=== PATIENT | male | born 1960 ===

== ENCOUNTER 2019-07-05 07:42 | Day surgery (SDC) | payer BC ==
[~2019-07-05] VITALS: Ht 190.5 cm; Wt 99.8 kg
[~2019-07-05 07:42] MED LIST: KETO10 PO; SERT100 PO; THERA1 EACH PO; Zofran Odt4 MG PO
[2019-07-05 08:36] LABS: BASOPHILS ABSOLUTE AUTO 0.03 K/mm3 (0.00-0.23); BASOPHILS PERCENT AUTO 1 % (0-2); EOSINOPHILS ABSOLUTE AUTO 0.14 K/mm3 (0.00-0.68); EOSINOPHILS PERCENT AUTO 3 % (0-6); Hematocrit 47.3 % (37.0-53.0); Hemoglobin 15.7 g/dL (13.5-17.5); IMMATURE GRAN ABSOLUTE AUTO 0.01 K/mm3 (0.00-0.10); IMMATURE GRAN PERCENT AUTO 0 % (0-1); LYMPHOCYTES ABSOLUTE AUTO 1.23 K/mm3 (0.84-5.20); LYMPHOCYTES PERCENT AUTO 24 % (21-46); MONOCYTES ABSOLUTE AUTO 0.48 K/mm3 (0.16-1.47); MONOCYTES PERCENT AUTO 9 % (4-13); Mean Corpuscular HGB Conc 33.2 g/dL (31.5-36.5); Mean Corpuscular Volume 85 fL (80-100); Mean Platelet Volume 10.8 fL (9.1-12.4); NEUTROPHILS ABSOLUTE AUTO 3.25 K/mm3 (1.96-9.15); NEUTROPHILS PERCENT AUTO 63 % (41-73); Platelet Count 129 K/mm3 (150-400); RDW Coefficient Variation 12.6 % (11.7-14.2); White Blood Cell Count 5.14 K/mm3 (4.00-11.30)
== END 2019-07-05 09:48 | disposition home or self-care (01) ==
LOC: ORSCSDS 07:42
PROVIDERS: Internal Medicine Gastroenterology
PROC: 0DBP8ZX Excision of Rectum, Via Natural or Artificial Opening Endoscopic, Diagnostic (ICD-10-PCS; principal; 2019-07-05 09:00)
DX: Z12.11 Encounter for screening for malignant neoplasm of colon (principal); Z86.010 Personal history of colon polyps; K57.30 Diverticulosis of large intestine without perforation or abscess without bleeding; Z83.71 Family history of colonic polyps; Z80.0 Family history of malignant neoplasm of digestive organs; D69.6 Thrombocytopenia, unspecified; Z79.899 Other long term (current) drug therapy
CPT/HCPCS: 85025; 88305; J2405; J2704; J7120

== ENCOUNTER 2019-12-09 06:43 | Day surgery (SDC) | payer BC ==
[~2019-12-09] VITALS: Ht 190.5 cm; Wt 101.6 kg
--- NOTE | 2019-12-09 07:26 | NUR ---
12/09/19 0726 Cynthia Antonio CALL LIGHT WITHIN REACH. FAMILLY AT BEDSIDE.
== END 2019-12-09 08:53 | disposition home or self-care (01) ==
LOC: ORSCSDS 06:43
PROVIDERS: Orthopaedic Surgery
PROC: 01N50ZZ Release Median Nerve, Open Approach (ICD-10-PCS; principal; 2019-12-09 08:00)
DX: G56.03 Carpal tunnel syndrome, bilateral upper limbs (principal)
CPT/HCPCS: J2250; J3010; J7120